=== PATIENT | female | born 1975 | race Caucasian/White ===

== ENCOUNTER → 2022-09-17 10:08 | Outpatient (BNVA) | payer OTHER, SELFPAY | PROVIDERS: PCP Internal Medicine; Visit Provider Nurse Practitioner Family | DX: R51.9 Headache, unspecified (principal); M54.50 Low back pain, unspecified; R25.1 Tremor, unspecified; F41.9 Anxiety disorder, unspecified; G47.50 Parasomnia, unspecified | CPT/HCPCS: 99202 ==